=== PATIENT | female | born 1990 | race Caucasian/White ===

== ENCOUNTER 2016-07-11 13:37 | Outpatient (CLI) | payer OTHER | END 2016-07-11 13:38 | disposition home or self-care (01) | DX: R10.9 Unspecified abdominal pain (principal) ==

== ENCOUNTER 2016-08-03 00:03 | Emergency (ER) | payer OTHER ==
[2016-08-03 00:29] LABS: BASOPHILS # (AUTO) 0.1 10^3/uL (0.0-0.1); BASOPHILS % (AUTO) 0.5 %; EOSINOPHILS # (AUTO) 0.2 10^3/uL (0.0-0.7); EOSINOPHILS % (AUTO) 1.1 %; HCT - HEMATOCRIT 40.7 % (37.0-47.0); HGB - HEMOGLOBIN 13.8 g/dL (12.0-16.0); LYMPHOCYTES # (AUTO) 3.3 10^3/uL (1.5-3.5); LYMPHOCYTES % (AUTO) 22.8 %; MEAN CORPUSCULAR HEMOGLOBIN 30.5 pg (27.0-31.0); MEAN CORPUSCULAR HGB CONC 33.9 g/dL (32.0-36.0); MEAN PLATELET VOLUME 8.3 fL (7.9-10.8); MONOCYTES # (AUTO) 0.6 10^3/uL (0.0-1.0); MONOCYTES % (AUTO) 4.4 %; NEUTROPHILS # (AUTO) 10.4 10^3/uL (1.5-6.6); NEUTROPHILS % (AUTO) 71.2 %; RED BLOOD COUNT 4.52 10^6/uL (4.20-5.40); RED CELL DISTRIBUTION WIDTH 12.6 % (12.0-15.0); UNCORRECTED WHITE BLOOD COUNT 14.5 x10^3/uL; WHITE BLOOD COUNT 14.5 x10^3/uL (4.8-10.8)
[2016-08-03 00:30] LABS: UA w/ MICROSCOPIC CHARGE YES
[2016-08-03 00:33] LABS: BILIRUBIN,URINE NEGATIVE (NEGATIVE)
[2016-08-03 00:34] LABS: HCG UR QUAL NEGATIVE
[2016-08-03 00:37] LABS: UR CULTURE IF IND NOT INDICATED
[2016-08-03 00:50] LABS: ALBUMIN/GLOBULIN RATIO 1.2 (1.0-2.2); BILIRUBIN,TOTAL 0.9 mg/dL (0.2-1.0); CREATININE 0.9 mg/dL (0.4-1.0); POTASSIUM 3.5 mmol/L (3.5-5.0); TOTAL PROTEIN 8.6 g/dL (6.7-8.2)
--- NOTE | 2016-08-03 01:40 | ED Physician Documentation ---
PD HPI ABD PAIN - Stated complaint Stated Complaint: FEMALE - Chief complaint Chief Complaint: Abd Pain - History obtained from History obtained from: Patient - History of Present Illness Timing - onset: How many months ago (1) Timing - details: Abrupt onset, Constant, Waxing and waning Pain level max: 10 Pain level now: 10 Quality: Pain Location: RLQ Radiation: No: Chest, , Lower back, Left flank, Left shoulder, Right flank, Right shoulder, Upper back Improved by: Other (no ameliorating factors) Worsened by: Moving, Palpation Associated symptoms: No: Fever, Nausea, Vomiting Similar symptoms before: Diagnosis Recently seen: Emergency Dept - Additional information Additional information: patient states she was diagnosed with an ovarian cyst one month ago at [facility], "after three trips to the [place] emergency department". Patient says she has had pain in the area of the ovarian cyst, right pelvis, since being diagnosed. patient says she is currently "worst pain of my entire life". Patient was seen at [facility] emergency department yesterday, And reviewing the records faxed from [facility], it appears she was discharged less than three hours before arriving at [facility] emergency department. I asked patient what was done at [facility], patient says "Nothing". The notes from the visit to [facility] reflect that patient had an ultrasound your analysis and an exam. The notes also reflect that she was given medication in the emergency department for pain and nausea. patient says she has not yet seen an IT TELECOM TECHNICIAN and is not established with an OB/ COMMERCIAL PRODUCER on the [place] despite having a history of ovarian cyst and ovarian torsion. She says she has her first appointment with an IT TELECOM TECHNICIAN upcoming at the beginning of August. Patient has oxycodone for pain. I asked her if she had taken the oxycodone and she initially said she had not taken any today. She then remembered she had taken one tablet this morning. I asked her why she had not taken any pain medication tonight and she replied that the windows "did nothing " so she did not try any more doses. patient also says she has nausea, vomiting , and is unable to keep "anything down". Review of Systems Constitutional: reports: Reviewed and negative Cardiac: reports: Reviewed and negative Respiratory: reports: Reviewed and negative GI: reports: Abdominal Pain, Nausea, Vomiting : denies: Dysuria, Frequency PD PAST MEDICAL HISTORY - Past Medical History Past Medical History: Yes Cardiovascular: None Respiratory: Asthma Neuro: None Endocrine/Autoimmune: None GI: None COMMERCIAL PRODUCER: Ovarian cysts : None HEENT: None Psych: Depression, Anxiety Musculoskeletal: None Derm: None - Past Surgical History Past Surgical History: Yes General: Cholecystectomy, Other /COMMERCIAL PRODUCER: Oophrectomy Derm: Skin cancer surgery - Present Medications Home Medications: Ambulatory Orders Medication Instructions Recorded Confirmed Sertraline [Zoloft] 25 mg PO DAILY 04/23/14 11/18/15 Albuterol Sulfate [Ventolin Hfa] 2 puffs IH Q6H PRN #1 hfa.aer.[id number] 06/18/1511/17 Benzonatate [Tessalon] 100 mg PO TID PRN #20 capsule 11/18/15 Guaifenesin/Dextromethorphan 5 ml PO Q4HR PRN 11/18/15 11/18/15 [Tussin Dm Liquid] - Allergies Allergies/Adverse Reactions: Allergies Allergy/AdvReac Type Severity Reaction Status Date / Time No Known Drug Allergies Allergy Verified 11/18/15 20:52 - Social History Does the pt smoke?: No Smoking Status: Never smoker Does the pt drink ETOH?: No Does the pt have substance abuse?: No - Immunizations Immunizations are current?: Yes - POLST Patient has POLST: No PD ED PE NORMAL - Vitals Vital signs reviewed: Yes - General General: Alert and oriented X 3, No acute distress, Well developed/nourished - Cardiac Cardiac: RRR, No murmur - Respiratory Respiratory: No respiratory distress, Clear bilaterally - Abdomen Abdomen: Soft, Non distended PD ED PE EXPANDED - Abdomen Abdomen: Tender to palpation, RLQ. No: Rebound, Guarding Results - Vitals Vitals: Oxygen O2 Source Room air - Labs Labs: Laboratory Tests 08/03/16 08/03/16 08/03/16 00:10 00:10 00:20 WBC 14.5 H RBC 4.52 Hgb 13.8 Hct 40.7 MCV 90.0 MCH 30.5 MCHC 33.9 RDW 12.6 Plt Count 451 H MPV 8.3 Neut # 10.4 H Lymph # 3.3 [place] # 0.6 Eos # 0.2 Baso # 0.1 Absolute Nucleated RBC 0.01 Nucleated RBCs 0.0 Sodium Potassium Chloride Carbon Dioxide Anion Gap BUN Creatinine Estimated GFR (MDRD) Glucose Calcium Total Bilirubin AST ALT Alkaline Phosphatase Total Protein Albumin Globulin Albumin/Globulin Ratio Lipase Urine Color YELLOW Urine Clarity HAZY Urine pH 6.0 Ur Specific [place] 1.025 1.025 Urine Protein TRACE Urine Glucose (UA) NEGATIVE Urine Ketones >=80 H Urine Occult Blood NEGATIVE Urine Nitrite POSITIVE H Urine Bilirubin NEGATIVE Urine Urobilinogen 0.2 (NORMAL) Ur Leukocyte Esterase NEGATIVE Urine RBC 0-5 Urine WBC 4-5 Ur Squamous Epith Cells MOD Squamous H Urine Bacteria Many H Urine Casts 0-2 Granular Casts Ur Microscopic Review INDICATED Urine Culture Comments NOT INDICATED Urine HCG, Qual NEGATIVE 08/03/16 00:20 WBC RBC Hgb Hct MCV MCH MCHC RDW Plt Count MPV Neut # Lymph # [place] # Eos # Baso # Absolute Nucleated RBC Nucleated RBCs Sodium 137 Potassium 3.5 Chloride 101 Carbon Dioxide 26 Anion Gap 10.0 BUN 15 Creatinine 0.9 Estimated GFR (MDRD) 75 L Glucose 142 H Calcium 10.0 Total Bilirubin 0.9 AST 28 ALT 21 Alkaline Phosphatase 65 Total Protein 8.6 H Albumin 4.7 Globulin 3.9 Albumin/Globulin Ratio 1.2 Lipase 27 Urine Color Urine Clarity Urine pH Ur Specific [place] Urine Protein Urine Glucose (UA) Urine Ketones Urine Occult Blood Urine Nitrite Urine Bilirubin Urine Urobilinogen Ur Leukocyte Esterase Urine RBC Urine WBC Ur Squamous Epith Cells Urine Bacteria Urine Casts Ur Microscopic Review Urine Culture Comments Urine HCG, Qual - Rads (name of study) CT A/P Radiology: Prelim report reviewed, See rad report PD MEDICAL DECISION MAKING - ED course Complexity details: reviewed old records, reviewed results, re-evaluated patient , considered differential, d/w patient Departure - Departure Disposition: 01 Home, Self Care Clinical Impression: Abdominal pain Qualifiers: Abdominal location: right lower quadrant Qualified Code(s): R10.31 - Right lower quadrant pain Condition: Good Instructions: ED Abdominal Pain Unkn Cause Follow-Up: Vu Gibbs MD [Primary Care Provider] - Discharge Date/Time: 08/03/16 04:15
[2016-08-03] MEDS ORDERED: SODIUM CHLORIDE 0.9% 1,000 ML IV STA (02:24)
[2016-08-03] MEDS ORDERED: HYDROmorphone 1 MG/ML SYRINGE ONE (02:47)
[2016-08-03] MEDS ORDERED: HYDROmorphone 1 MG/ML SYRINGE IVP STA (02:47)
[2016-08-03] MEDS ORDERED: IOPAMIDOL-300 100 ML VIAL IVP ONE (03:12)
--- NOTE | 2016-08-03 03:29 | CT Preliminary Report ---
Exam: CT Abdomen/Pelvis W/ IMPRESSION: 1. Appendix appears normal. 2. Right ovarian follicle measuring 1.4 cm. [facility] SITE ID: [id number]
--- NOTE | 2016-08-03 03:31 | CT Report ---
EXAM: CT ABDOMEN AND PELVIS EXAM DATE: 08/03/2016 03:17 AM. CLINICAL HISTORY: Right lower quadrant pain. COMPARISONS: 07/17/2014. TECHNIQUE: Routine helical CT imaging was performed through the abdomen and pelvis. IV contrast: Tiara onic. Enteric contrast: No. Reconstructions: Coronal and sagittal. In accordance with CT protocol optimization, one or more of the following dose reduction techniques w ere utilized for this exam: automated exposure control, adjustment of mA and/or KV based on patient s ize, or use of iterative reconstructive technique. FINDINGS: Lung Bases: Unremarkable. Liver: No focal lesion identified. Gallbladder/Bile Ducts: Status post cholecystectomy. Spleen: Normal. Pancreas: Normal. Adrenal Glands: Normal. Kidneys: Normal. No masses or hydronephrosis. Peritoneal Cavity/Bowel: No bowel obstruction seen. No diverticulitis. No lymphadenopathy. No free ai r or free fluid. Appendix appears normal. Pelvic Organs: Right ovarian follicle measuring 1.4 cm. Visualized pelvic organs are otherwise unrema rkable. Vasculature: No aneurysms or other significant abnormality. Bones: No significant abnormality. Other: None. IMPRESSION: 1. Appendix appears normal. 2. Right ovarian follicle measuring 1.4 cm. [facility] Referring Provider Line: [phone] SITE ID: [id number]
[2016-08-03 04:18] VITALS: BP 123/71
== END 2016-08-03 04:15 | disposition home or self-care (01) ==
LOC: ED 00:03
DX: R10.31 Right lower quadrant pain (principal); Z90.49 Acquired absence of other specified parts of digestive tract; N83.01 Follicular cyst of right ovary
CPT/HCPCS: 36415; 74177; 80053; 81001; 81025; 83690; 85025; 96361; 96374; 99284; J1170; Q9967; 81003; 87086